=== PATIENT | female | born 1960 | race African-American/Black ===

== ENCOUNTER 2021-07-12 14:03 | Emergency (ER) | payer OTHER, MEDICAID ==
[~2021-07-12] VITALS: Ht 157.5 cm; Wt 83.5 kg
[~2021-07-12 14:03] MED LIST: AMLO2.5T2 PO; DOXY100C5 PO; MAGN400T10 PO; MULT-1145 PO; NORT25CA5 PO; PRO40 PO
--- NOTE | 2021-07-12 14:10 | NUR ---
Pt brought by self, A&Ox4, pt presents to ER with headache for 2 x 3 days, no facial drop, intact ROM, respirations even and unlabored, cap refill <3, VSS.
[2021-07-12 14:12] VITALS: BP_SYST 158
--- NOTE | 2021-07-12 14:12 | NUR ---
Note aureamarnie in EDM - 07/12/21 at 1632 by [email or web address] Pt brought by self, A&Ox4, pt presents to ER with headache x 2-3 days, skin pink and warm,cap refill <3, VSS, respirations even and unlabored, cap refill <3.
--- NOTE | 2021-07-12 14:20 | NUR ---
Pt A&OX4, VSS, respirations even and unlabored, cap refill <3.
--- NOTE | 2021-07-12 16:00 | NUR ---
Dr Sevilla evaluating patient at bedside
[2021-07-12] MEDS ORDERED: KETOROLAC TROMETHAMINE 15 MG VIAL IVP ONE (17:00)
[2021-07-12] MEDS ORDERED: NACL 0.9% 1,000 ML IV ONE (17:00)
[2021-07-12] MEDS ORDERED: PROCHLORPERAZINE EDISYLATE 10 MG/2 ML VIAL IVP ONE (17:00)
[2021-07-12] MEDS ORDERED: DIPHENHYDRAMINE INJ 50 MG/ML VIAL IVP ONE (17:00)
[2021-07-12 17:39] LABS: BASOPHILS % (AUTO) 0.4 % (0.0-2.0); EOSINOPHILS # (AUTO) 0.2 K/uL (0.0-0.4); EOSINOPHILS % (AUTO) 2.9 % (0.0-4.0); HEMATOCRIT 40.3 % (36-48); HEMOGLOBIN 13.5 g/dL (12.0-16.0); LYMPHOCYTES # (AUTO) 1.8 K/uL (1.0-5.5); LYMPHOCYTES % (AUTO) 23.5 % (20.5-51.5); MEAN CORPUSCULAR HEMOGLOBIN 29 pg (27-31); MEAN CORPUSCULAR HGB CONC 34 % (32-36); MEAN CORPUSCULAR VOLUME 87 fL (79.0-98.0); MONOCYTES # (AUTO) 0.5 K/uL (0.0-1.0); MONOCYTES % (AUTO) 6.6 % (1.7-9.3); NEUTROPHILS # (AUTO) 5.1 K/uL (1.8-7.7); NEUTROPHILS % (AUTO) 66.6 % (40.0-70.0); PLATELET COUNT (AUTO) 295 K/uL (130-430); RED BLOOD CELL COUNT(AUTO) 4.63 MIL/uL (4.2-6.2); RED CELL DISTRIBUTION WIDTH 14.2 % (9.0-15.0); WHITE BLOOD COUNT (AUTO) 7.6 K/uL (4.8-10.8)
[2021-07-12 17:41] LABS: BILIRUBIN,URINE NEGATIVE (NEGATIVE); CLARITY/URINE CLEAR (CLEAR); COLOR,URINE YELLOW (YELLOW); GLUCOSE,URINE NEGATIVE (NEGATIVE); KETONES,URINE NEGATIVE (NEGATIVE); LEUKOCYTE ESTERASE ,URINE NEGATIVE (NEGATIVE); NITRITE, URINE NEGATIVE (NEGATIVE); PROTEIN URINE NEGATIVE (NEGATIVE); UROBILINOGEN,URINE 0.2 (0.2-1.0)
[2021-07-12 17:46] LABS: BLOOD, URINE TRACE (NEGATIVE)
[2021-07-12 17:50] LABS: ANION GAP 4 (5-15); CALCIUM 8.6 mg/dL (8.4-11.0); CHLORIDE 102 mmol/L (98-107); CREATININE 0.79 mg/dL (0.55-1.30); GFR AFRICAN AMERICAN 95 mL/min (>90); GLUCOSE 99 mg/dL (70-99); POTASSIUM 4.3 mmol/L (3.5-5.1); SODIUM SERUM 135 mmol/L (136-145); UREA NITROGEN, BLOOD 12 mg/dL (8-21)
[2021-07-12 17:59] LABS: ALANINE AMINOTRANSFERASE 45 U/L (12-78); ALBUMIN 3.5 g/dL (3.4-4.8); ASPARTATE AMINOTRANSFERASE 32 U/L (10-37)
[2021-07-12 18:02] LABS: BACTERIA,URINE FEW /HPF (None Seen); RBC,URINE 0-3 /HPF (0-3); WBC,URINE NONE SEEN /HPF (0-3)
[2021-07-12 18:17] LABS: TOTAL BILIRUBIN 0.1 mg/dL (0.0-1.0)
[2021-07-12] MEDS ORDERED: KETOROLAC TROMETHAMINE 30 MG VIAL ONE (18:28)
[2021-07-12] MEDS ORDERED: KETOROLAC TROMETHAMINE 30 MG VIAL IM ONE (18:30)
--- NOTE | 2021-07-12 18:52 | NUR ---
Patient given written and verbal discharge instructions and verbalizes understanding. ER MD discussed with patient the results and treatment provided. Patient in stable condition. ID arm band removed. No Rx given. Patient educated on pain management and to follow up with PMD. Pain Scale 2/10 . Opportunity for questions provided and answered. Medication side effect fact sheet provided.
== END 2021-07-12 18:51 | disposition home or self-care (01) ==
LOC: SED 14:03
DX: R51.9 Headache, unspecified (principal); I10 Essential (primary) hypertension; F41.9 Anxiety disorder, unspecified; Z79.899 Other long term (current) drug therapy
CPT/HCPCS: 36415; 70450; 76376; 80053; 81000; 83735; 84484; 85025; 93005; 96372; 99285; J1885

== ENCOUNTER 2022-01-03 13:58 | Emergency (ER) | payer OTHER, MEDICAID ==
[~2022-01-03] VITALS: Ht 157.5 cm; Wt 90.7 kg
[2022-01-03 14:04] VITALS: BP_SYST 142
[2022-01-03] MEDS ORDERED: PROCHLORPERAZINE EDISYLATE 10 MG/2 ML VIAL IM ONE (16:00)
[2022-01-03] MEDS ORDERED: KETOROLAC TROMETHAMINE 60 MG/2 ML VIAL IM ONE (16:00)
[2022-01-03] MEDS ORDERED: BUTA1CAP43 PO (17:11)
[2022-01-03 17:28] VITALS: BP_SYST 142
== END 2022-01-03 17:27 | disposition home or self-care (01) ==
LOC: SED 13:58
DX: R51.9 Headache, unspecified (principal); I10 Essential (primary) hypertension; Z79.899 Other long term (current) drug therapy
CPT/HCPCS: 96372; 99284; J0780; J1885

== ENCOUNTER 2022-02-25 15:39 | Emergency (ER) | payer OTHER, MEDICAID ==
[~2022-02-25] VITALS: Ht 157.5 cm; Wt 90.7 kg
[~2022-02-25 15:39] MED LIST changes: +BUTA1CAP43 PO
[2022-02-25 15:50] VITALS: BP_SYST 114
--- NOTE | 2022-02-25 16:44 | NUR ---
PLACED IN BED 2
[2022-02-25 16:49] LABS: BASOPHILS % (AUTO) 0.4 % (0.0-2.0); EOSINOPHILS # (AUTO) 0.1 K/uL (0.0-0.4); EOSINOPHILS % (AUTO) 1.5 % (0.0-4.0); HEMATOCRIT 42.6 % (36-48); HEMOGLOBIN 14.1 g/dL (12.0-16.0); LYMPHOCYTES # (AUTO) 2.2 K/uL (1.0-5.5); LYMPHOCYTES % (AUTO) 28.1 % (20.5-51.5); MEAN CORPUSCULAR HEMOGLOBIN 29 pg (27-31); MEAN CORPUSCULAR HGB CONC 33 % (32-36); MEAN CORPUSCULAR VOLUME 86 fL (79.0-98.0); MONOCYTES # (AUTO) 0.5 K/uL (0.0-1.0); MONOCYTES % (AUTO) 6.5 % (1.7-9.3); NEUTROPHILS # (AUTO) 4.9 K/uL (1.8-7.7); NEUTROPHILS % (AUTO) 63.5 % (40.0-70.0); PLATELET COUNT (AUTO) 290 K/uL (130-430); RED BLOOD CELL COUNT(AUTO) 4.96 MIL/uL (4.2-6.2); RED CELL DISTRIBUTION WIDTH 13.8 % (9.0-15.0); WHITE BLOOD COUNT (AUTO) 7.7 K/uL (4.8-10.8)
[2022-02-25 16:58] LABS: ANION GAP 9 (5-15); CALCIUM 8.7 mg/dL (8.4-11.0); CHLORIDE 102 mmol/L (98-107); CREATININE 0.94 mg/dL (0.55-1.30); GLUCOSE 96 mg/dL (70-99); POTASSIUM 3.7 mmol/L (3.5-5.1); SODIUM SERUM 140 mmol/L (136-145); UREA NITROGEN, BLOOD 13 mg/dL (8-21)
[2022-02-25 17:00] LABS: GFR AFRICAN AMERICAN 78 mL/min (>90)
--- NOTE | 2022-02-25 17:04 | NUR ---
PT SEEN BY DR. BENTLEY AT BS. AAO X 4. BIBS WITH C/C OF MIDSTERNAL CHEST PAIN THAT RADIATED TO LEFT ARM AND MID BACK. PT STATED SHE WAS SITTING AT HOME WATCHING TV AND STARTED TO FEEL CHEST PAIN FOR APPROXIMATELY 5 MIN THEN RESOLVED SLIGHTLY. PAIN REOCCURED 2 MORE TIMES IN APPROXIMATELY 20 MINUTE INTERVALS. CURRENTLY REPORTS PAIN 4/10 FROM CHEST. NAD NOTED. VERY PLEASANT AND CALM. PLACED ON DEPUTY TREASURER WITH NSR NOTED. 12L EKG DONE. DENIES ANY SOB/N/V. PENDING LAB RESULTS AND FURTHER ORDERS. WILL CONT TO MONITOR.
[2022-02-25 17:08] LABS: ALANINE AMINOTRANSFERASE 16 U/L (12-78); ALBUMIN 3.7 g/dL (3.4-4.8); ASPARTATE AMINOTRANSFERASE 22 U/L (10-37); TOTAL BILIRUBIN 0.2 mg/dL (0.0-1.0)
[2022-02-25] MEDS ORDERED: HYDR-3917 PO (19:00)
--- NOTE | 2022-02-25 20:03 | NUR ---
Received in bed , AA&O x4, SPEECH CLEAR AND COHERENT , denies pain at this time , assisted to the bath room x2, V/S bp [id number], hr89, rr13, 98% ra, lung clear ,sr on the monitor, patient stable
[2022-02-26 03:27] VITALS: BP_SYST 126
== END 2022-02-25 22:00 | disposition home or self-care (01) ==
LOC: SED 15:39
DX: R07.2 Precordial pain (principal); R11.0 Nausea; I10 Essential (primary) hypertension; Z79.899 Other long term (current) drug therapy
CPT/HCPCS: 36415; 71045; 76705; 80053; 83690; 84484; 85025; 93005; 99285

== ENCOUNTER 2022-03-05 08:49 | Outpatient (CLI) | payer OTHER, MEDICAID ==
[~2022-03-05 08:49] MED LIST changes: +HYDR-3917 PO
== END 2022-03-05 19:44 | disposition home or self-care (01) ==
LOC: SMI 08:49
PROVIDERS: ATTEND Internal Medicine
DX: I07.1 Rheumatic tricuspid insufficiency (principal); R94.31 Abnormal electrocardiogram [ECG] [EKG]; R07.9 Chest pain, unspecified; R22.32 Localized swelling, mass and lump, left upper limb
CPT/HCPCS: 73219; 73221; 93306

== ENCOUNTER 2022-04-30 12:50 | Outpatient (CLI) | payer OTHER, MEDICAID | END 2022-04-30 19:49 | disposition home or self-care (01) | LOC: SRD 12:50 | PROVIDERS: ATTEND Internal Medicine | DX: J34.2 Deviated nasal septum (principal); J34.89 Other specified disorders of nose and nasal sinuses; J32.9 Chronic sinusitis, unspecified; R93.0 Abnormal findings on diagnostic imaging of skull and head, not elsewhere classified | CPT/HCPCS: 70486-TC; 76376 ==

== ENCOUNTER 2022-09-17 16:03 | Outpatient (CLI) | payer OTHER | END 2022-09-17 19:53 | disposition home or self-care (01) | LOC: SRD 16:03 | PROVIDERS: ATTEND Internal Medicine | DX: M25.512 Pain in left shoulder (principal) | CPT/HCPCS: 73030 ==

== ENCOUNTER 2022-10-21 17:05 | Emergency (ER) | payer OTHER, MEDICAID ==
[~2022-10-21] VITALS: Ht 157.5 cm; Wt 90.7 kg
[2022-10-21 17:05] VITALS: BP_SYST 158
--- NOTE | 2022-10-21 17:09 | NUR ---
Patient triaged and placed in waiting room. VSS and patient appears in no acute distress at this time. Accompanied by SELF, awaiting available bed, and MD notified of need for MSE.
--- NOTE | 2022-10-21 17:18 | NUR ---
PT STATES THAT SHE HAS BEEN HAVING LEFT SIDED CHEST PAIN WITH DIARRHEA SINCE LAST NIGHT. PT STATES SHE FEELS WEAK AND DIZZY.
[2022-10-21 18:18] LABS: BASOPHILS % (AUTO) 0.2 % (0.0-2.0); EOSINOPHILS % (AUTO) 0.1 % (0.0-4.0); HEMATOCRIT 40.5 % (36-48); HEMOGLOBIN 13.6 g/dL (12.0-16.0); LYMPHOCYTES # (AUTO) 0.5 K/uL (1.0-5.5); LYMPHOCYTES % (AUTO) 5.6 % (20.5-51.5); MEAN CORPUSCULAR HEMOGLOBIN 29 pg (27-31); MEAN CORPUSCULAR HGB CONC 34 % (32-36); MEAN CORPUSCULAR VOLUME 86 fL (79.0-98.0); MONOCYTES # (AUTO) 0.5 K/uL (0.0-1.0); MONOCYTES % (AUTO) 5.4 % (1.7-9.3); NEUTROPHILS # (AUTO) 7.7 K/uL (1.8-7.7); NEUTROPHILS % (AUTO) 88.7 % (40.0-70.0); PLATELET COUNT (AUTO) 250 K/uL (130-430); RED BLOOD CELL COUNT(AUTO) 4.69 MIL/uL (4.2-6.2); RED CELL DISTRIBUTION WIDTH 14.1 % (9.0-15.0); WHITE BLOOD COUNT (AUTO) 8.7 K/uL (4.8-10.8)
[2022-10-21 19:03] LABS: ANION GAP 9 (5-15); CALCIUM 8.8 mg/dL (8.4-11.0); CHLORIDE 102 mmol/L (98-107); CREATININE 0.87 mg/dL (0.55-1.30); GFR AFRICAN AMERICAN 85 mL/min (>90); GLUCOSE 107 mg/dL (70-99); UREA NITROGEN, BLOOD 17 mg/dL (8-21)
[2022-10-21 19:09] LABS: ASPARTATE AMINOTRANSFERASE 19 U/L (10-37); TOTAL BILIRUBIN 0.4 mg/dL (0.0-1.0)
[2022-10-21 19:10] LABS: ALANINE AMINOTRANSFERASE 24 U/L (12-78); ALBUMIN 3.6 g/dL (3.4-4.8)
--- NOTE | 2022-10-21 19:49 | NUR ---
PT BIB SELF FROM HOME, ASSISTED TO BED 7 WITH A WHEELCHAIR. PT A&Ox4, ABLE TO MAKE NEEDS KNOWN. PT C/O CHEST PAIN AND HEADACHE. PT RATES CHEST PAIN 8/10 AND HEADACHE 10/10. PT DESCRIBES CHEST PAIN PRESSURE WITH DIFFICULTY BREATHING. PT STATES SHE HAS HAD DIARRHEA AND VOMITING SINCE YESTERDAY. PT DESCRIBES STOOLS AND VOMIT YELLOW COLORED. PT DENIES BLOOD IN STOOL. PT DENIES DIFFICULTY URINATING. PT HAS A HISTORY OF HTN AND ASTHMA. PT LAST TOOK EXCEDRIN AT 1300 FOR PAIN. SAFETY MEASURES IN PLACE.
--- NOTE | 2022-10-21 19:50 | NUR ---
ER Dr. DAVILA at bedside examining patient.
[2022-10-21] MEDS ORDERED: NACL 0.9% 1,000 ML IV ONE (20:00)
--- NOTE | 2022-10-21 20:06 | NUR ---
PT TAKEN TO CT IN WHEELCHAIR.
[2022-10-21] MEDS ORDERED: ONDA-8 TL (21:35)
[2022-10-21] MEDS ORDERED: KETOROLAC TROMETHAMINE 30 MG VIAL IVP ONE (21:45)
[2022-10-21 23:27] VITALS: BP_SYST 145
--- NOTE | 2022-10-21 23:27 | NUR ---
Patient given written and verbal discharge instructions and verbalizes understanding. ER GIOVANNI BAIG discussed with patient the results and treatment provided. Patient in stable condition. ID arm band removed. IV catheter removed intact and dressing applied, no active bleeding. Rx of ZOFRAN given. Patient educated on pain management and to follow up with PMD. Pain Scale 2/10. Opportunity for questions provided and answered. Medication side effect fact sheet provided.
== END 2022-10-21 23:27 | disposition home or self-care (01) ==
LOC: SED 17:05
DX: K52.9 Noninfective gastroenteritis and colitis, unspecified (principal); R10.84 Generalized abdominal pain; R07.9 Chest pain, unspecified; R11.10 Vomiting, unspecified; I10 Essential (primary) hypertension; Z79.899 Other long term (current) drug therapy
CPT/HCPCS: 99285; 74176; 96374; 71045; 96361; 80053; 83880; 85025; 84484; 36415; 76376; J1885; J7030

== ENCOUNTER 2022-11-14 10:40 | Outpatient (CLI) | payer OTHER, MEDICAID ==
[~2022-11-14 10:40] MED LIST changes: +ONDA-8 TL
[2022-11-14 11:50] LABS: ALBUMIN 3.4 g/dL (3.4-4.8); CALCIUM 8.2 mg/dL (8.4-11.0); CREATININE 0.91 mg/dL (0.55-1.30); TOTAL BILIRUBIN 0.2 mg/dL (0.0-1.0)
== END 2022-11-14 18:19 | disposition home or self-care (01) ==
LOC: SLB 10:40
PROVIDERS: ATTEND Internal Medicine
DX: I10 Essential (primary) hypertension (principal); E78.5 Hyperlipidemia, unspecified
CPT/HCPCS: 36415; 80053; 80061

== ENCOUNTER 2023-02-11 10:53 | Outpatient (CLI) | payer OTHER, MEDICAID ==
[2023-02-11 11:32] LABS: BASOPHILS % (AUTO) 0.4 % (0.0-2.0); EOSINOPHILS # (AUTO) 0.2 K/uL (0.0-0.4); EOSINOPHILS % (AUTO) 1.9 % (0.0-4.0); HEMATOCRIT 41.3 % (36-48); HEMOGLOBIN 13.5 g/dL (12.0-16.0); LYMPHOCYTES # (AUTO) 2.9 K/uL (1.0-5.5); LYMPHOCYTES % (AUTO) 30.5 % (20.5-51.5); MEAN CORPUSCULAR HEMOGLOBIN 29 pg (27-31); MEAN CORPUSCULAR HGB CONC 33 % (32-36); MEAN CORPUSCULAR VOLUME 87 fL (79.0-98.0); MONOCYTES # (AUTO) 0.5 K/uL (0.0-1.0); MONOCYTES % (AUTO) 5.3 % (1.7-9.3); NEUTROPHILS # (AUTO) 5.9 K/uL (1.8-7.7); NEUTROPHILS % (AUTO) 61.9 % (40.0-70.0); PLATELET COUNT (AUTO) 295 K/uL (130-430); RED BLOOD CELL COUNT(AUTO) 4.73 MIL/uL (4.2-6.2); RED CELL DISTRIBUTION WIDTH 13.6 % (9.0-15.0); WHITE BLOOD COUNT (AUTO) 9.5 K/uL (4.8-10.8)
[2023-02-11 12:25] LABS: ALBUMIN 3.3 g/dL (3.4-4.8); CALCIUM 8.2 mg/dL (8.4-11.0); CREATININE 0.85 mg/dL (0.55-1.30); THYROID STIMULATING HORMONE 0.87 uIu/mL (0.34-4.82); TOTAL BILIRUBIN 0.3 mg/dL (0.0-1.0)
== END 2023-02-11 20:33 | disposition home or self-care (01) ==
LOC: SLB 10:53
PROVIDERS: ATTEND Internal Medicine
DX: I10 Essential (primary) hypertension (principal); E78.5 Hyperlipidemia, unspecified; E55.9 Vitamin D deficiency, unspecified; E03.9 Hypothyroidism, unspecified; E56.9 Vitamin deficiency, unspecified
CPT/HCPCS: 36415; 80053; 80061; 82306; 82607; 83037; 84443; 85025

== ENCOUNTER 2023-02-22 18:23 | Emergency (ER) | payer OTHER, MEDICAID ==
[~2023-02-22] VITALS: Ht 167.6 cm; Wt 85.7 kg
[2023-02-22 18:44] VITALS: BP_SYST 118; PULSE 96; RESP 20; TEMP 98; O2SAT 97
[2023-02-22] MEDS ORDERED: ACETAMINOPHEN 325 MG TABLET PO ONE (19:00)
[2023-02-22] MEDS ORDERED: KETOROLAC TROMETHAMINE 30 MG VIAL IM ONE (19:45)
[2023-02-22] MEDS ORDERED: ACETAMINOPHEN 500 MG TABLET PO ONE (19:45)
[2023-02-22] MEDS ORDERED: DICL50TA9 PO (20:50)
[2023-02-22 20:58] VITALS: BP_SYST 120; PULSE 93; RESP 20; TEMP 98; O2SAT 97
== END 2023-02-22 20:58 | disposition home or self-care (01) ==
LOC: SED 18:23
DX: G44.209 Tension-type headache, unspecified, not intractable (principal); Z79.899 Other long term (current) drug therapy
CPT/HCPCS: 99285; 70450; 76376; 96372; J1885

== ENCOUNTER 2023-02-28 11:38 | Outpatient (CLI) | payer OTHER, MEDICAID ==
[~2023-02-28 11:38] MED LIST changes: +DICL50TA9 PO
== END 2023-02-28 15:00 | disposition home or self-care (01) ==
LOC: SUS 11:38
PROVIDERS: ATTEND Internal Medicine
DX: E04.2 Nontoxic multinodular goiter (principal)
CPT/HCPCS: 76536-TC

== ENCOUNTER 2023-05-28 08:22 | Outpatient (CLI) | payer OTHER, MEDICAID ==
[2023-05-28 08:49] LABS: BASOPHILS # (AUTO) 0.1 K/uL (0.0-0.2); BASOPHILS % (AUTO) 0.7 % (0.0-2.0); EOSINOPHILS # (AUTO) 0.2 K/uL (0.0-0.4); EOSINOPHILS % (AUTO) 2.2 % (0.0-4.0); HEMATOCRIT 39.6 % (36-48); LYMPHOCYTES # (AUTO) 2.2 K/uL (1.0-5.5); LYMPHOCYTES % (AUTO) 26.2 % (20.5-51.5); MEAN CORPUSCULAR HEMOGLOBIN 28 pg (27-31); MEAN CORPUSCULAR HGB CONC 33 % (32-36); MEAN CORPUSCULAR VOLUME 86 fL (79.0-98.0); MONOCYTES # (AUTO) 0.6 K/uL (0.0-1.0); MONOCYTES % (AUTO) 6.7 % (1.7-9.3); NEUTROPHILS # (AUTO) 5.4 K/uL (1.8-7.7); NEUTROPHILS % (AUTO) 64.2 % (40.0-70.0); PLATELET COUNT (AUTO) 296 K/uL (130-430); RED BLOOD CELL COUNT(AUTO) 4.61 MIL/uL (4.2-6.2); RED CELL DISTRIBUTION WIDTH 14.1 % (9.0-15.0); WHITE BLOOD COUNT (AUTO) 8.4 K/uL (4.8-10.8)
[2023-05-28 09:19] LABS: ALBUMIN 3.4 g/dL (3.4-4.8); CREATININE 0.88 mg/dL (0.55-1.30); POTASSIUM 3.9 mmol/L (3.5-5.1); THYROID STIMULATING HORMONE 1.69 uIu/mL (0.34-4.82); TOTAL BILIRUBIN 0.2 mg/dL (0.0-1.0); TOTAL PROTEIN, SERUM 6.7 g/dL (6.4-8.3)
== END 2023-05-28 19:44 | disposition home or self-care (01) ==
LOC: SLB 08:22
PROVIDERS: ATTEND Internal Medicine
DX: I10 Essential (primary) hypertension (principal); R73.9 Hyperglycemia, unspecified; E66.9 Obesity, unspecified; E55.9 Vitamin D deficiency, unspecified; E56.9 Vitamin deficiency, unspecified
CPT/HCPCS: 36415; 80053; 80061; 82306; 82607; 83037; 84443; 85025

== ENCOUNTER 2023-07-23 09:17 | Outpatient (CLI) | payer OTHER, MEDICAID | END 2023-07-23 18:36 | disposition home or self-care (01) | LOC: SMI 09:17 | PROVIDERS: ATTEND Internal Medicine | DX: I63.81 Other cerebral infarction due to occlusion or stenosis of small artery (principal); R90.82 White matter disease, unspecified; R51.9 Headache, unspecified; E23.6 Other disorders of pituitary gland | CPT/HCPCS: 70551 ==

== ENCOUNTER 2023-07-24 09:46 | Outpatient (CLI) | payer OTHER, MEDICAID ==
[2023-07-24] MEDS ORDERED: GADOBENATE DIMEGLUMINE 529 MG/ML, 5 ML VIAL IV ONE (10:02)
== END 2023-07-24 18:15 | disposition home or self-care (01) ==
LOC: SMI 09:46
PROVIDERS: ATTEND Internal Medicine
DX: D35.2 Benign neoplasm of pituitary gland (principal); R93.0 Abnormal findings on diagnostic imaging of skull and head, not elsewhere classified
CPT/HCPCS: 70553; A9577

== ENCOUNTER 2023-09-17 08:43 | Outpatient (CLI) | payer OTHER, MEDICAID ==
[2023-09-17 09:26] LABS: BASOPHILS # (AUTO) 0.1 K/uL (0.0-0.2); BASOPHILS % (AUTO) 0.8 % (0.0-2.0); EOSINOPHILS # (AUTO) 0.2 K/uL (0.0-0.4); EOSINOPHILS % (AUTO) 2.3 % (0.0-4.0); HEMATOCRIT 39.6 % (36-48); HEMOGLOBIN 13.3 g/dL (12.0-16.0); LYMPHOCYTES # (AUTO) 2.9 K/uL (1.0-5.5); LYMPHOCYTES % (AUTO) 32.4 % (20.5-51.5); MEAN CORPUSCULAR HEMOGLOBIN 29 pg (27-31); MEAN CORPUSCULAR HGB CONC 34 % (32-36); MEAN CORPUSCULAR VOLUME 86 fL (79.0-98.0); MONOCYTES # (AUTO) 0.7 K/uL (0.0-1.0); MONOCYTES % (AUTO) 7.8 % (1.7-9.3); NEUTROPHILS # (AUTO) 5.1 K/uL (1.8-7.7); NEUTROPHILS % (AUTO) 56.7 % (40.0-70.0); PLATELET COUNT (AUTO) 277 K/uL (130-430); RED CELL DISTRIBUTION WIDTH 14.4 % (9.0-15.0); WHITE BLOOD COUNT (AUTO) 9.1 K/uL (4.8-10.8)
[2023-09-17 09:42] LABS: BILIRUBIN,URINE NEGATIVE (NEGATIVE); COLOR,URINE YELLOW (YELLOW); GLUCOSE,URINE NEGATIVE (NEGATIVE); KETONES,URINE NEGATIVE (NEGATIVE); LEUKOCYTE ESTERASE ,URINE NEGATIVE (NEGATIVE); NITRITE, URINE NEGATIVE (NEGATIVE); PH,URINE 5.5 (5.0-8.0); PROTEIN URINE NEGATIVE (NEGATIVE); UROBILINOGEN,URINE 0.2 (0.2-1.0)
[2023-09-17 09:46] LABS: PROTHROMBIN TIME 10.7 SECS (9.5-12.5)
[2023-09-17 09:47] LABS: BLOOD, URINE TRACE (NEGATIVE); CLARITY/URINE SLIGHTLY HAZY (CLEAR)
[2023-09-17 09:53] LABS: ALBUMIN 3.6 g/dL (3.4-4.8); CALCIUM 9.1 mg/dL (8.4-11.0); CREATININE 1.35 mg/dL (0.55-1.30); FREE T4 (FREE THYROXINE) 0.7 ng/dL (0.6-1.6); POTASSIUM 3.5 mmol/L (3.5-5.1); THYROID STIMULATING HORMONE 2.85 uIu/mL (0.34-4.82); TOTAL BILIRUBIN 0.3 mg/dL (0.0-1.0); TOTAL PROTEIN, SERUM 7.4 g/dL (6.4-8.3)
[2023-09-17 10:18] LABS: BACTERIA,URINE FEW /HPF (None Seen); RBC,URINE 0-3 /HPF (0-3); WBC,URINE NONE SEEN /HPF (0-3)
[2023-09-18 08:07] LABS: CORTISOL (SERUM) 6.7 ug/dL (6.2-19.4); ESTRADIOL 13.5 pg/mL (0.0-54.7); FOLLICLE STIMULATION HORMONE 76.1 mIU/mL (25.8-134.8); PROLACTIN 28.9 ng/mL (3.6-25.2); TRIIODOTHYRONINE, FREE 3.8 pg/mL (2.0-4.4)
[2023-09-19 15:06] LABS: ACTH, PLASMA 11.5 pg/mL (7.2-63.3)
== END 2023-09-17 15:50 | disposition home or self-care (01) ==
LOC: SLB 08:43
PROVIDERS: ATTEND Internal Medicine
DX: Z01.818 Encounter for other preprocedural examination (principal); I07.1 Rheumatic tricuspid insufficiency; R94.31 Abnormal electrocardiogram [ECG] [EKG]; D68.9 Coagulation defect, unspecified; Z79.899 Other long term (current) drug therapy; Z86.2 Personal history of diseases of the blood and blood-forming organs and certain disorders involving the immune mechanism
CPT/HCPCS: 36415; 80053; 81000; 81001; 81015; 82024; 82533; 82670; 83001; 83037; 84146; 84305; 84439; 84443; 84481; 85025; 85610; 85730; 87086; 93005; 93306

== ENCOUNTER 2023-10-06 10:56 | Outpatient (CLI) | payer OTHER, MEDICAID ==
[2023-10-06 11:46] LABS: FREE T4 (FREE THYROXINE) 0.8 ng/dL (0.6-1.6)
== END 2023-10-06 18:30 | disposition home or self-care (01) ==
LOC: SLB 10:56
PROVIDERS: ATTEND Physician Assistant
DX: D49.7 Neoplasm of unspecified behavior of endocrine glands and other parts of nervous system (principal); I10 Essential (primary) hypertension
CPT/HCPCS: 36415; 84295; 84439

== ENCOUNTER 2023-11-11 17:52 | Emergency (ER) | payer OTHER, MEDICAID ==
[~2023-11-11] VITALS: Ht 160 cm; Wt 100.7 kg
[2023-11-11 17:57] VITALS: BP_SYST 121; PULSE 78; RESP 18; TEMP 98.3; O2SAT 98
[2023-11-11 19:46] LABS: BASOPHILS % (AUTO) 0.4 % (0.0-2.0); EOSINOPHILS # (AUTO) 0.2 K/uL (0.0-0.4); EOSINOPHILS % (AUTO) 1.9 % (0.0-4.0); HEMATOCRIT 39.6 % (36-48); HEMOGLOBIN 13.4 g/dL (12.0-16.0); LYMPHOCYTES # (AUTO) 2.2 K/uL (1.0-5.5); LYMPHOCYTES % (AUTO) 22.4 % (20.5-51.5); MEAN CORPUSCULAR HEMOGLOBIN 29 pg (27-31); MEAN CORPUSCULAR HGB CONC 34 % (32-36); MEAN CORPUSCULAR VOLUME 85 fL (79.0-98.0); MONOCYTES # (AUTO) 0.5 K/uL (0.0-1.0); MONOCYTES % (AUTO) 5.1 % (1.7-9.3); NEUTROPHILS # (AUTO) 6.8 K/uL (1.8-7.7); NEUTROPHILS % (AUTO) 70.2 % (40.0-70.0); PLATELET COUNT (AUTO) 274 K/uL (130-430); RED BLOOD CELL COUNT(AUTO) 4.66 MIL/uL (4.2-6.2); RED CELL DISTRIBUTION WIDTH 14.5 % (9.0-15.0); WHITE BLOOD COUNT (AUTO) 9.7 K/uL (4.8-10.8)
[2023-11-11 19:57] LABS: CALCIUM 8.3 mg/dL (8.4-11.0); CREATININE 0.99 mg/dL (0.55-1.30); POTASSIUM 3.9 mmol/L (3.5-5.1)
[2023-11-11] MEDS: METOCLOPRAMIDE HCL 10 MG/2 ML VIAL IVP ONE (20:47)
[2023-11-11] MEDS: NACL 0.9% 1,000 ML IV ONE (20:47)
[2023-11-11] MEDS: KETOROLAC TROMETHAMINE 30 MG VIAL IVP ONE (20:49)
[2023-11-11] MEDS: ACETAMINOPHEN 500 MG TABLET PO ONE (20:50)
[2023-11-11] MEDS ORDERED: NAPR-1172 PO (23:54)
[2023-11-11] MEDS ORDERED: LEVO-62 PO (23:54)
[2023-11-12 00:04] VITALS: BP_SYST 116; PULSE 68; RESP 20; TEMP 97; O2SAT 100
== END 2023-11-12 00:05 | disposition home or self-care (01) ==
LOC: SED 17:52
DX: J01.40 Acute pansinusitis, unspecified (principal); R51.9 Headache, unspecified; H57.13 Ocular pain, bilateral; I10 Essential (primary) hypertension; Z79.899 Other long term (current) drug therapy
CPT/HCPCS: 99285; 70450; 96374; 96361; 96375; 80048; 85025; 36415; 70486; J1885; J2765; J7030

== ENCOUNTER 2023-12-07 16:40 | Emergency (ER) | payer OTHER, MEDICAID ==
[~2023-12-07] VITALS: Ht 157.5 cm; Wt 103.4 kg
[~2023-12-07 16:40] MED LIST changes: +LEVO-62 PO; +NAPR-1172 PO
[2023-12-07 16:50] VITALS: BP_SYST 109; PULSE 84; RESP 18; TEMP 96.8; O2SAT 97
[2023-12-07 17:28] LABS: BASOPHILS # (AUTO) 0.1 K/uL (0.0-0.2); BASOPHILS % (AUTO) 0.6 % (0.0-2.0); EOSINOPHILS # (AUTO) 0.3 K/uL (0.0-0.4); EOSINOPHILS % (AUTO) 3.4 % (0.0-4.0); HEMATOCRIT 39.4 % (36-48); HEMOGLOBIN 13.3 g/dL (12.0-16.0); LYMPHOCYTES # (AUTO) 2.2 K/uL (1.0-5.5); LYMPHOCYTES % (AUTO) 22.8 % (20.5-51.5); MEAN CORPUSCULAR HEMOGLOBIN 29 pg (27-31); MEAN CORPUSCULAR HGB CONC 34 % (32-36); MEAN CORPUSCULAR VOLUME 85 fL (79.0-98.0); MONOCYTES # (AUTO) 0.8 K/uL (0.0-1.0); MONOCYTES % (AUTO) 8.4 % (1.7-9.3); NEUTROPHILS # (AUTO) 6.2 K/uL (1.8-7.7); NEUTROPHILS % (AUTO) 64.8 % (40.0-70.0); PLATELET COUNT (AUTO) 269 K/uL (130-430); RED BLOOD CELL COUNT(AUTO) 4.64 MIL/uL (4.2-6.2); RED CELL DISTRIBUTION WIDTH 14.3 % (9.0-15.0); WHITE BLOOD COUNT (AUTO) 9.5 K/uL (4.8-10.8)
[2023-12-07 17:40] LABS: PROTHROMBIN TIME 10.3 SECS (9.5-12.5)
[2023-12-07 18:15] LABS: ANION GAP 6 (5-15); CALCIUM 8.7 mg/dL (8.4-11.0); CARBON DIOXIDE 30 mmol/L (23-29); CHLORIDE 107 mmol/L (98-107); GFR AFRICAN AMERICAN 81 mL/min (>90); GLUCOSE 89 mg/dL (74-106); POTASSIUM 4.5 mmol/L (3.5-5.1); SODIUM SERUM 143 mmol/L (136-145); UREA NITROGEN, BLOOD 13 mg/dL (8-21)
[2023-12-07 18:16] LABS: GFR NON AFRICAN-AMERICAN 67 mL/min (>90)
[2023-12-07 18:22] LABS: COVID19 ANTIGEN SOFIA FIA NEGATIVE (NEGATIVE)
[2023-12-07 18:23] LABS: INFLUENZA TYPE A Negative (NEGATIVE); INFLUENZA TYPE B NEGATIVE (NEGATIVE)
[2023-12-07 21:41] VITALS: BP_SYST 109; PULSE 84; RESP 18; TEMP 96.8; O2SAT 97
== END 2023-12-07 21:41 | disposition home or self-care (01) ==
LOC: SED 16:40
DX: J06.9 Acute upper respiratory infection, unspecified (principal); R05.9 Cough, unspecified; R09.89 Other specified symptoms and signs involving the circulatory and respiratory systems; R51.9 Headache, unspecified; I10 Essential (primary) hypertension; Z20.822 Contact with and (suspected) exposure to COVID-19
CPT/HCPCS: 36415; 70450-TC; 71045; 80048; 83605; 83880; 84484; 85025; 85610; 85730; 99284

== ENCOUNTER 2023-12-26 13:18 | Outpatient (CLI) | payer OTHER, MEDICAID ==
[2023-12-26] MEDS ORDERED: GADOTERATE MEGLUMINE 7.5 MMOL/15 ML VIAL IV ONE (14:01)
== END 2023-12-26 19:01 | disposition home or self-care (01) ==
LOC: SMI 13:18
PROVIDERS: ATTEND Internal Medicine
DX: G31.9 Degenerative disease of nervous system, unspecified (principal); D35.2 Benign neoplasm of pituitary gland; E23.0 Hypopituitarism
CPT/HCPCS: 70553; A9575

== ENCOUNTER 2024-03-16 10:02 | Outpatient (CLI) | payer OTHER, MEDICAID ==
[2024-03-16 10:42] LABS: BASOPHILS % (AUTO) 0.5 % (0.0-2.0); EOSINOPHILS # (AUTO) 0.2 K/uL (0.0-0.4); EOSINOPHILS % (AUTO) 2.5 % (0.0-4.0); HEMATOCRIT 39.5 % (36-48); LYMPHOCYTES % (AUTO) 40.1 % (20.5-51.5); MEAN CORPUSCULAR HEMOGLOBIN 28 pg (27-31); MEAN CORPUSCULAR HGB CONC 33 % (32-36); MEAN CORPUSCULAR VOLUME 84 fL (79.0-98.0); MONOCYTES # (AUTO) 0.3 K/uL (0.0-1.0); MONOCYTES % (AUTO) 4.2 % (1.7-9.3); NEUTROPHILS # (AUTO) 3.9 K/uL (1.8-7.7); NEUTROPHILS % (AUTO) 52.7 % (40.0-70.0); PLATELET COUNT (AUTO) 234 K/uL (130-430); RED BLOOD CELL COUNT(AUTO) 4.69 MIL/uL (4.2-6.2); RED CELL DISTRIBUTION WIDTH 13.8 % (9.0-15.0); WHITE BLOOD COUNT (AUTO) 7.4 K/uL (4.8-10.8)
[2024-03-16 10:59] LABS: BILIRUBIN,URINE NEGATIVE (NEGATIVE); CLARITY/URINE CLEAR (CLEAR); COLOR,URINE YELLOW (YELLOW); GLUCOSE,URINE NEGATIVE (NEGATIVE); KETONES,URINE NEGATIVE (NEGATIVE); LEUKOCYTE ESTERASE ,URINE 1+ (NEGATIVE); NITRITE, URINE NEGATIVE (NEGATIVE); PROTEIN URINE NEGATIVE (NEGATIVE); UROBILINOGEN,URINE 0.2 (0.2-1.0)
[2024-03-16 11:20] LABS: BLOOD, URINE TRACE (NEGATIVE)
[2024-03-16 11:21] LABS: BACTERIA,URINE RARE /HPF (None Seen)
[2024-03-16 11:36] LABS: CALCIUM 8.1 mg/dL (8.4-11.0); CREATININE 1.1 mg/dL (0.55-1.30); FREE T4 (FREE THYROXINE) 0.7 ng/dl (0.8-1.5); POTASSIUM 3.8 mmol/L (3.5-5.1); THYROID STIMULATING HORMONE 2.41 uIu/mL (0.36-3.74); TOTAL BILIRUBIN 0.2 mg/dL (0.0-1.0)
== END 2024-03-16 19:44 | disposition home or self-care (01) ==
LOC: SUS 10:02
PROVIDERS: ATTEND Internal Medicine
DX: E04.2 Nontoxic multinodular goiter (principal); E66.01 Morbid (severe) obesity due to excess calories; E27.40 Unspecified adrenocortical insufficiency; D35.2 Benign neoplasm of pituitary gland; N39.0 Urinary tract infection, site not specified; R73.09 Other abnormal glucose; Z79.899 Other long term (current) drug therapy
CPT/HCPCS: 36415; 76536; 80053; 80061; 81000; 81001; 81015; 83037; 84439; 84443; 85025